=== PATIENT | male | born 1985 | race Caucasian/White ===

== ENCOUNTER 2021-06-04 08:19 | Emergency (ER) | payer OTHER, MEDICAID ==
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
[2021-06-04 09:01] LABS: CHLORIDE,CL 103 mmol/L (98-107); SODIUM,NA 137 mmol/L (136-145)
[2021-06-04 09:03] LABS: ANION GAP 12.1 mmol/L (5-15)
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
--- NOTE | 2021-06-04 10:05 | CR ---
[id number] RAD/RAD Cervical Spine 2-3V EXAM: RAD Cervical Spine 2-3V CLINICAL DATA: TRAUMA COMPARISON: No previous similar exam is available. FINDINGS: At the C5, C6, and C7 levels, alignment is not maintained. There does appear to be prevertebral soft tissue swelling. 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 The open-mouth odontoid view is limited There is also question of widening of the space between the odontoid and the lateral masses of C1. There is reversal of the normal lordosis. CAT scan of cervical spine is suggested IMPRESSION: ABNORMAL EXAM INCOMPLETE EVALUATION CAT SCAN SUGGESTED Karan Le MD 06/04/21 [id number] Thank you for allowing us to participate in the care of your patient.
[2021-06-04] MEDS ORDERED: Morphine 4 MG/ML Syringe IVPUSH ONE (10:27)
[2021-06-04] MEDS ORDERED: Morphine 2 MG/ML SYRINGE IVPUSH ONE (11:35)
[2021-06-04] MEDS ORDERED: Ondansetron 4 MG/2 ML SDV IVPUSH ONE (11:35)
[2021-06-04] MEDS ORDERED: Iopamidol 612 MG/ML 100 ML Bottle IVPUSH ONE (11:49)
--- NOTE | 2021-06-04 11:56 | CT ---
[id number] CT/CT Thoracic Spine WO IV Exam: CT Thoracic Spine WO IV Clinical Data: TRAUMA COMPARISON: NO PREVIOUS SIMILAR EXAM IS AVAILABLE FINDINGS: No fracture or subluxation is seen Further dictation is to follow IMPRESSION: NO FRACTURE OR SUBLUXATION Karan Le MD 06/04/21 [id number] Thank you for allowing us to participate in the care of your patient.
--- NOTE | 2021-06-04 12:23 | CT ---
[id number] CT/CT Cervical Spine WO IV EXAM: CT Cervical Spine WO IV INDICATION: PER RADIOLOGIST SUGGESTION. COMPARISON: None. 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 Acute comminuted fracture of the left posterior elements at C5 (series 6 image 18 and series 3 image 119). No definite right-sided posterior element fracture. However there is subluxation of the right facet articulation, suggesting acute ligamentous injury. Combination of findings results in an unstable fracture and 4 mm anterolisthesis of C5 over C6. No other acute findings are identified. IMPRESSION: Acute unstable fracture at C5-6 resulting in 4 mm anterolisthesis, described above. Results relayed to Bryant Moore at time of dictation. Roger Sorensen MD 06/04/21 3631 Thank you for allowing us to participate in the care of your patient.
--- NOTE | 2021-06-04 12:38 | CT ---
[id number] CT/CT Chest Abdomen Pelvis W IV EXAM: CT Chest Abdomen Pelvis W IV CLINICAL DATA: TRAUMA. COMPARISON STUDY: None. FINDINGS: Lungs are clear. No pleural effusion or pneumothorax. No pneumomediastinum. No mediastinal or hilar lymphadenopathy. Heart is normal in size. No pericardial effusion. No evidence of acute aortic injury. Abdomen and pelvis: Liver, spleen, gallbladder, pancreas, adrenal glands, and kidneys are unremarkable. No evidence of bowel injury, obstruction, or inflammation. Urinary bladder is intact. No lymphadenopathy, free fluid, or pneumoperitoneum. Bones and soft tissues: No fracture, compression deformity, or osseous lesion. IMPRESSION: No acute findings in the chest, abdomen, or pelvis. Roger Sorensen MD 06/04/21 [id number] Thank you for allowing us to participate in the care of your patient.
[2021-06-04 12:41] LABS: BARBITURATE SCREEN,URINE NEGATIVE (NEGATIVE); BENZODIAZEPINES SCREEN,URINE NEGATIVE (NEGATIVE); BUPRENORPHINE SCREEN,URINE NEGATIVE (NEGATIVE)
[2021-06-04 12:42] LABS: METHAMPHETAMINE SCREEN, URINE POSITIVE (NEGATIVE); THC SCREEN,URINE 50 NG/ML POSITIVE (NEGATIVE)
== END 2021-06-04 13:48 | disposition short-term general hospital (02) ==
LOC: VM.ED 08:19
DX: S12.400A Unspecified displaced fracture of fifth cervical vertebra, initial encounter for closed fracture (principal); M54.6 Pain in thoracic spine; M25.512 Pain in left shoulder; V49.40XA Driver injured in collision with unspecified motor vehicles in traffic accident, initial encounter; Y92.410 Unspecified street and highway as the place of occurrence of the external cause
CPT/HCPCS: 71045; 71260; 72040; 72125; 72128; 74177; 80053; 80305-QW; 80307; 81001; 85007; 85027; 85610; 96374; 96375; 99284; 99285-25; J2270; J2405; Q9967

== ENCOUNTER 2021-08-28 09:34 | Emergency (ER) | payer MEDICAID ==
[2021-08-28] MEDS ORDERED: Sodium Chloride 0.9% 1,000 ML IV ONE ×3 (09:55→11:42)
[2021-08-28] MEDS ORDERED: Sodium Chloride 0.9% 1,000 ML IV SCH (10:15)
[2021-08-28] MEDS ORDERED: Morphine 2 MG/ML SYRINGE IVPUSH ONE (10:19)
[2021-08-28] MEDS ORDERED: Ondansetron 4 MG/2 ML SDV IVPUSH ONE (10:20)
[2021-08-28] MEDS ORDERED: Lidocaine 2% 100 MG/5 ML Syringe ONE ×3 (10:26→12:24)
[2021-08-28] MEDS ORDERED: HYDROmorphone 1 MG/ML Syringe ONE ×2 (10:26)
[2021-08-28] MEDS ORDERED: Morphine 2 MG/ML SYRINGE ONE (10:26)
[2021-08-28] MEDS ORDERED: Ondansetron 4 MG/2 ML SDV ONE (10:26)
[2021-08-28] MEDS ORDERED: HYDROmorphone 1 MG/ML Syringe IVPUSH ONE ×2 (10:44→11:25)
[2021-08-28 11:28] LABS: ANION GAP 31.6 mmol/L (5-15); CHLORIDE,CL 107 mmol/L (98-107); SODIUM,NA 150 mmol/L (136-145)
[2021-08-28 11:51] LABS: BARBITURATE SCREEN,URINE NEGATIVE (NEGATIVE); BENZODIAZEPINES SCREEN,URINE NEGATIVE (NEGATIVE); METHAMPHETAMINE SCREEN, URINE POSITIVE (NEGATIVE); THC SCREEN,URINE 50 NG/ML POSITIVE (NEGATIVE)
[2021-08-28 11:52] LABS: BUPRENORPHINE SCREEN,URINE NEGATIVE (NEGATIVE)
== END 2021-08-28 11:55 | disposition short-term general hospital (02) ==
LOC: VM.ED 09:34
DX: T33.522A Superficial frostbite of left hand, initial encounter (principal); T33.521A Superficial frostbite of right hand, initial encounter; T33.822A Superficial frostbite of left foot, initial encounter; T33.821A Superficial frostbite of right foot, initial encounter; T68.XXXA Hypothermia, initial encounter; M62.82 Rhabdomyolysis; R79.89 Other specified abnormal findings of blood chemistry; I95.9 Hypotension, unspecified; X31.XXXA Exposure to excessive natural cold, initial encounter
CPT/HCPCS: 36415; 36680; 51702; 80048; 80305-QW; 82550; 83605; 84443; 84481; 84484; 85025; 93005; 96374; 96375; 96376; 99284; 99291-25; 99292; J1170; J2270; J2405; J7030

== ENCOUNTER 2021-09-15 09:19 | Emergency (ER) | payer SELFPAY ==
[2021-09-15 10:01] LABS: BUPRENORPHINE,URINE NEGATIVE (NEGATIVE); METHYLENEDIOXYMETHAMP,UR NEGATIVE (NEGATIVE); PHENCYCLIDINE,URINE NEGATIVE (NEGATIVE)
[2021-09-15 10:03] LABS: MARIJUANA,URINE POSITIVE (NEGATIVE)
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
== END 2021-09-15 10:05 | disposition home or self-care (01) ==
LOC: VM.ED 09:19
DX: T33.821A Superficial frostbite of right foot, initial encounter (principal); G89.29 Other chronic pain; X31.XXXA Exposure to excessive natural cold, initial encounter
CPT/HCPCS: 80305-QW; 99283

== ENCOUNTER 2021-12-04 23:06 | Emergency (ER) | payer MEDICAID ==
[2021-12-04] MEDS ORDERED: Sodium Chloride 0.9% 10 ML Syringe FLUSH PRN (23:26)
[2021-12-04] MEDS ORDERED: Sodium Chloride 0.9% 1,000 ML IV SCH (23:45)
[2021-12-04] MEDS ORDERED: Ondansetron 4 MG/2 ML SDV IVPUSH ONE (23:59)
[2021-12-04] MEDS ORDERED: LORazepam 2 MG/ML SDV IVPUSH ONE (23:59)
[2021-12-04] MEDS ORDERED: GI Cocktail Oral Solution 30 ML PO ONE (23:59)
[2021-12-05] MEDS ORDERED: Pantoprazole 40 MG Vial IVPUSH ONE
[2021-12-05 00:31] LABS: PTT,PARTIAL THROMBOPLSTIN TIME 23.4 SEC (20.5-30.9)
[2021-12-05 00:33] LABS: BARBITURATE SCREEN,URINE NEGATIVE (NEGATIVE); BENZODIAZEPINES SCREEN,URINE NEGATIVE (NEGATIVE); METHAMPHETAMINE SCREEN, URINE NEGATIVE (NEGATIVE); THC SCREEN,URINE 50 NG/ML NEGATIVE (NEGATIVE)
[2021-12-05 00:34] LABS: BUPRENORPHINE SCREEN,URINE NEGATIVE (NEGATIVE)
[2021-12-05 00:37] LABS: CHLORIDE,CL 99 mmol/L (98-107); SODIUM,NA 136 mmol/L (136-145)
[2021-12-05 00:42] LABS: ANION GAP 13.6 mmol/L (5-15)
[2021-12-05] MEDS ORDERED: LORazepam 1 MG Tab PO ONE (01:23)
[2021-12-05] MEDS ORDERED: Take Home: LORazepam 0.5 MG Tab, 2 Tab Pack PO ONE (01:28)
[2021-12-05] MEDS ORDERED: Take Home: Ondansetron 4 MG Tab.DIS, 5 Tab Pack PO ONE (01:28)
== END 2021-12-05 01:56 | disposition left against medical advice (07) ==
LOC: VM.ED 23:06
DX: K29.20 Alcoholic gastritis without bleeding (principal); F10.231 Alcohol dependence with withdrawal delirium; Y90.6 Blood alcohol level of 120-199 mg/100 ml; Z20.822 Contact with and (suspected) exposure to COVID-19
CPT/HCPCS: 36415; 80053; 80305-QW; 80307; 81001; 82150; 83605; 83690; 83735; 84100; 84443; 84484; 85025; 85610; 85730; 86140; 99284-25; A9270-GY; Q0162; U0002

== ENCOUNTER 2022-06-13 11:46 | Inpatient (IN) | payer MEDICAID ==
[2022-06-13 13:09] LABS: BARBITURATE SCREEN,URINE NEGATIVE (NEGATIVE); BENZODIAZEPINES SCREEN,URINE NEGATIVE (NEGATIVE); BUPRENORPHINE SCREEN,URINE NEGATIVE (NEGATIVE); METHAMPHETAMINE SCREEN, URINE NEGATIVE (NEGATIVE); THC SCREEN,URINE 50 NG/ML POSITIVE (NEGATIVE)
[2022-06-13 13:15] LABS: ANION GAP 19.8 mmol/L (5-15)
[2022-06-13] MEDS ORDERED: Sodium Chloride 0.9% 1,000 ML IV ONE (13:38)
[2022-06-13] MEDS ORDERED: Haloperidol Lactate 5 MG/ML SDV IV PRN ×2 (17:46→17:53)
[2022-06-13] MEDS ORDERED: Ondansetron 4 MG/2 ML SDV IVPUSH PRN (17:46)
[2022-06-13] MEDS ORDERED: LORazepam 2 MG/ML SDV IV PRN (17:46)
[2022-06-13] MEDS ORDERED: PHENobarbitaL sodium 260 MG in Sodium Chloride 0.9% 100 ML IV ONE (17:55)
[2022-06-13] MEDS ORDERED: Flumazenil 0.1 MG/ML 5 ML MDV IVPUSH PRN ×2 (17:55→23:07)
[2022-06-13] MEDS ORDERED: LORazepam 2 MG/ML SDV IVPUSH PRN (17:55)
[2022-06-13] MEDS ORDERED: Sodium Chloride 0.9% 1,000 ML IV SCH (18:00)
[2022-06-13] MEDS: cloNIDine 0.1 MG Tab PO SCH (20:48)
[2022-06-13] MEDS: Thiamine 100 MG Tab PO SCH (20:49)
[2022-06-13] MEDS: LORazepam 1 MG Tab PO PRN ×2 (20:51→22:46)
[2022-06-13] MEDS ORDERED: Lactulose Soln 10 GM/15 ML 30 ML UD Cup PO SCH (21:00)
[2022-06-13] MEDS ORDERED: Naltrexone 50 MG Tab PO SCH (21:00)
[2022-06-13] MEDS: Folic Acid 1 MG Tab PO SCH (21:02)
[2022-06-13] MEDS: Multivitamins with Iron/Calcium/Folic Acid/Minerals Tab PO SCH (21:02)
[2022-06-13] MEDS ORDERED: LORazepam 2 MG/ML SDV IM ONE (23:07)
[2022-06-13] MEDS ORDERED: Haloperidol Lactate 5 MG/ML SDV IM ONE (23:45)
[2022-06-14] MEDS: Pantoprazole 40 MG Vial IV SCH ×2 (00:50→00:51)
[2022-06-14] MEDS: Nicotine 21 MG/24 Hr Patch TRDERM SCH ×2 (01:22→08:41)
[2022-06-14] MEDS: LORazepam 1 MG Tab PO PRN ×2 (04:03→05:27)
[2022-06-14 07:28] LABS: ANION GAP 14.6 mmol/L (5-15)
[2022-06-14] MEDS ORDERED: Haloperidol 5 MG Tab PO PRN (07:33)
[2022-06-14] MEDS ORDERED: Ondansetron 4 MG Tab.DIS PO PRN (07:34)
[2022-06-14] MEDS ORDERED: PHENobarbital 64.8 MG Tab PO ONE (07:36)
[2022-06-14] MEDS ORDERED: Pantoprazole 40 MG Tab.CR PO SCH (08:00)
[2022-06-14] MEDS: Multivitamins with Iron/Calcium/Folic Acid/Minerals Tab PO SCH (08:41)
[2022-06-14] MEDS: Folic Acid 1 MG Tab PO SCH (08:41)
[2022-06-14] MEDS: Thiamine 100 MG Tab PO SCH (08:42)
[2022-06-14] MEDS: cloNIDine 0.1 MG Tab PO SCH ×2 (08:42→13:00)
[2022-06-14] MEDS ORDERED: PHENobarbital Sodium 65 MG/ML SDV IV SCH (09:00)
[2022-06-14] MEDS ORDERED: Thiamine 100 MG Tab PO SCH (13:00)
[2022-06-15] MEDS ORDERED: PHENobarbital 64.8 MG Tab PO SCH (09:00)
== END 2022-06-14 15:30 | disposition left against medical advice (07) | DRG 894 ==
LOC: VM.ED 11:46 → VM.MS 15:25
PROVIDERS: ADMIT Nurse Practitioner Family; ATTEND Nurse Practitioner Family
PROC: HZ2ZZZZ Detoxification Services for Substance Abuse Treatment (ICD-10-PCS; principal; 2022-06-13)
DX: F10.229 Alcohol dependence with intoxication, unspecified (principal); F11.20 Opioid dependence, uncomplicated; E72.20 Disorder of urea cycle metabolism, unspecified; F10.239 Alcohol dependence with withdrawal, unspecified; F15.90 Other stimulant use, unspecified, uncomplicated; B18.2 Chronic viral hepatitis C; K29.20 Alcoholic gastritis without bleeding; G47.00 Insomnia, unspecified; F17.210 Nicotine dependence, cigarettes, uncomplicated; K70.10 Alcoholic hepatitis without ascites; Z79.1 Long term (current) use of non-steroidal anti-inflammatories (NSAID); Z98.890 Other specified postprocedural states; Z79.899 Other long term (current) drug therapy; Z98.1 Arthrodesis status
CPT/HCPCS: 36415; 80053; 80305-QW; 80307; 82140; 82150; 82550; 83605; 83690; 83735; 84100; 85025; 99283; 99285; A9270-GY; J1630; J2060